=== PATIENT | female | born 1945 | race Caucasian/White ===

== ENCOUNTER → 2020-08-12 | Outpatient (CLI) | payer MEDICARE, OTHER | LOC: HEART 5 08:48 | DX: R00.2 Palpitations (principal) ==

== ENCOUNTER → 2021-07-13 | Outpatient (CLI) | payer MEDICARE, OTHER | LOC: NM 09:00 | DX: E04.2 Nontoxic multinodular goiter (principal); E83.52 Hypercalcemia; Z79.899 Other long term (current) drug therapy | CPT/HCPCS: 76536; 78070; A9500 ==